=== PATIENT | male | born 1975 | race Caucasian/White ===

== ENCOUNTER 2021-10-13 05:48 | Emergency (ER) | payer OTHER ==
[~2021-10-13] VITALS: Ht 167.6 cm; Wt 89.4 kg
[2021-10-13 05:51] VITALS: BP 183/114
--- NOTE | 2021-10-13 05:51 | NUR ---
Dr. Rao at bedside to exam patient.
--- NOTE | 2021-10-13 06:02 | NUR ---
PT TAKEN TO ER BED 05
--- NOTE | 2021-10-13 06:05 | NUR ---
46/F BIB SELF, AMBULATORY, AAOX4 C/O LEFT SIDE ARM NUMBNESS AND TINGLING X LAST NIGHT AT 2100. PATIENT ALSO STATED THAT HE HAD A HEADACHE 5/10 AND THROBBING. PATIENT STATED HE FEELS VERY TIRED. DENIES N/V/D/C/SOB/CP/FEVER AT THIS TIME. MD LARSON ASSESSING PATIENT IN TRIAGE FOR NEURO DEFICITS, NONE NOTED AT THIS TIME. PMHX ASTHMA MEDS DENIES NKA
--- NOTE | 2021-10-13 06:10 | NUR ---
PATIENT AMBULATED TO THE AND BACK TO BED 5
--- NOTE | 2021-10-13 06:11 | NUR ---
URINE COLLECTED AND WALKED TO LAB
--- NOTE | 2021-10-13 06:15 | NUR ---
MD HE AT BEDSIDE ASSESSING PATIENT
--- NOTE | 2021-10-13 06:40 | NUR ---
IV ESTABLISHED 20G RIGHT AC . BLOOD COLLECTED AND WALKED TO LAB
--- NOTE | 2021-10-13 06:48 | NUR ---
PATIENT BP 150/100 AT THIS TIME. MD HE MADE AWARE. STATED HIS HEADACHE FEELS BETTER 08/24.
--- NOTE | 2021-10-13 06:55 | NUR ---
PATIENT TAKEN VIA GURNEY TO CT
[2021-10-13 07:00] LABS: BASOPHILS % (AUTO) 0.6 % (0.0-2.0); EOSINOPHILS # (AUTO) 0.1 K/uL (0-0.4); EOSINOPHILS % (AUTO) 2.6 % (0.0-4.0); HEMATOCRIT 48.5 % (36-52); HEMOGLOBIN 16.2 g/dL (12.0-18.0); LYMPHOCYTES # (AUTO) 0.9 K/uL (2.0-11.5); LYMPHOCYTES % (AUTO) 18.1 % (20.5-51.1); MEAN CORPUSCULAR HEMOGLOBIN 28 pg (27-31); MEAN CORPUSCULAR HGB CONC 33 g/dL (33-37); MEAN CORPUSCULAR VOLUME 85.1 fL (80-94); MONOCYTES # (AUTO) 0.3 K/uL (0.8-1.0); MONOCYTES % (AUTO) 6.6 % (1.7-9.3); NEUTROPHILS # (AUTO) 3.7 K/uL (1.8-7.7); NEUTROPHILS % (AUTO) 72.1 % (42.2-75.2); PLATELET COUNT (AUTO) 176 K/uL (140-450); RED BLOOD CELL COUNT(AUTO) 5.69 MIL/uL (4.20-6.10); RED CELL DISTRIBUTION WIDTH 13.9 % (11.6-13.7); WHITE BLOOD COUNT (AUTO) 5.2 K/uL (4.8-10.8)
--- NOTE | 2021-10-13 07:02 | NUR ---
PATIENT RETURNED FROM CT VIA [facility]
--- NOTE | 2021-10-13 07:17 | NUR ---
Pt report given to reza Myers. Transfer of care at this time.
--- NOTE | 2021-10-13 07:22 | NUR ---
Recieved report from LINA LOPEZ. [facility] at this time
[2021-10-13 08:00] LABS: APPEARANCE,URINE CLEAR (CLEAR); BILIRUBIN,URINE NEGATIVE (NEGATIVE); BLOOD, URINE NEGATIVE (NEGATIVE); COLOR,URINE YELLOW (YELLOW); LEUKOCYTE ESTERASE ,URINE NEGATIVE (NEGATIVE); NITRITE, URINE NEGATIVE (NEGATIVE); PH,URINE 7.5 (5.0-9.0); UGLUCOSE NEGATIVE (NEGATIVE)
[2021-10-13 08:10] LABS: ALBUMIN 3.6 g/dL (3.4-5.0); ANION GAP 12.3 (8-16); ASPARTATE AMINOTRANSFERASE 28 U/L (15-37); CARBON DIOXIDE 27.7 mmol/L (21-32); CHLORIDE 104 mmol/L (98-107); CREATININE 0.9 mg/dL (0.6-1.3); GFR ARICAN-AMERICAN 117 mL/min (>90); GLUCOSE 115 mg/dL (74-106); MAGNESIUM 2.1 mg/dL (1.8-2.4); PHOSPHORUS 3.2 mg/dL (2.5-4.9); SODIUM SERUM 140 mmol/L (136-145); TOTAL BILIRUBIN 0.3 mg/dL (0.0-1.0); UREA NITROGEN, BLOOD 15 mg/dL (7-18)
--- NOTE | 2021-10-13 10:03 | NUR ---
IV removed, catheter intact and site benign. Applied folded 4x4 gauze and tape to stop bleeding.
--- NOTE | 2021-10-13 10:04 | NUR ---
Patient discharged with v/s stable. Written and verbal after care instructions about HYPERTENSION AND PARESTHESIA given and explained. Patient verbalized understanding. Ambulatory with steady gait. All questions addressed prior to discharge. Advised to follow up with PMD.
[2021-10-13 10:06] VITALS: BP 135/92
== END 2021-10-13 10:04 | disposition home or self-care (01) ==
LOC: MED 05:48
DX: I10 Essential (primary) hypertension (principal); R20.2 Paresthesia of skin; M54.9 Dorsalgia, unspecified; J45.909 Unspecified asthma, uncomplicated; Z98.890 Other specified postprocedural states
CPT/HCPCS: 36415; 70450; 71045; 80053; 81003; 83735; 84100; 84484; 85025; 93005; 99285; Q0092